=== PATIENT | male | born 1995 | race Two or more races ===

== ENCOUNTER 2022-12-21 11:15 | Outpatient (CLI) | payer SELFPAY | END 2022-12-21 11:16 | disposition home or self-care (01) | LOC: LAB.N 11:15 | DX: Z01.89 Encounter for other specified special examinations (principal) | CPT/HCPCS: 36415 ==

== ENCOUNTER 2022-12-21 11:26 | Outpatient (CLI) | payer SELFPAY | END 2022-12-21 11:27 | disposition home or self-care (01) | LOC: LAB.N 11:26 | DX: Z53.9 Procedure and treatment not carried out, unspecified reason (principal) ==